=== PATIENT | male | born 1985 | race Caucasian/White ===

== ENCOUNTER 2017-09-23 01:12 | Emergency (ER) | payer OTHER ==
[~2017-09-23] VITALS: Ht 175.3 cm; Wt 81.7 kg
[~2017-09-23 01:12] MED LIST: ADVIL200 MG PO; AMOXICILLIN 50500 M1 PO; ANTIVERT25 MG PO; FLEXERIL PO; LEXAPRO 10 MG T10 MG; NOHOMEMEDICATIONS; NORCO 5-325 TA1 EACH PO; VICODIN
[2017-09-23 01:17] VITALS: BP 152/94
[2017-09-23] MEDS ORDERED: AMOXICILLIN500 M1 PO (01:34)
[2017-09-23] MEDS ORDERED: PROMETHAZINE/C118 ML PO (01:34)
== END 2017-09-23 01:40 | disposition home or self-care (01) ==
LOC: M.ERS 01:12
DX: J01.90 Acute sinusitis, unspecified (principal); H66.90 Otitis media, unspecified, unspecified ear; F17.210 Nicotine dependence, cigarettes, uncomplicated; F41.9 Anxiety disorder, unspecified; F32.9 Major depressive disorder, single episode, unspecified